=== PATIENT | female | born 1980 | race Hispanic/Latino ===

== ENCOUNTER 2020-03-07 16:52 | Emergency (ER) | payer OTHER ==
[2020-03-07 17:49] LABS: BASOPHILS % (AUTO) 0.4 % (0.0-5.0); EOSINOPHILS % (AUTO) 1.5 % (0.0-8.0); HEMATOCRIT 36.7 % (36-48); LYMPHOCYTES % (AUTO) 29.6 % (21.0-51.0); MEAN CORPUSCULAR HEMOGLOBIN 29.5 pg (27.0-33.0); MEAN CORPUSCULAR HGB CONC 33.8 g/dL (32.0-36.0); MEAN CORPUSCULAR VOLUME 87.4 fL (79-99); MONOCYTES % (AUTO) 5.5 % (3.0-13.0); NEUTROPHILS % (AUTO) 62.9 % (40.0-77.0); PLATELET COUNT (AUTO) 196 K/uL (130-400)
[2020-03-07 18:01] LABS: CREATININE 0.6 mg/dL (0.5-1.5); INR 0.92 (0.85-1.15); PARTIAL THROMBOPLASTIN TIME 26.4 SEC (26.3-35.5); POTASSIUM 3.7 mmol/L (3.5-5.1)
[2020-03-07] MEDS ORDERED: IOHEXOL-350 75 ML VIAL IV ONE (18:04)
[2020-03-07 18:05] LABS: ALBUMIN 3.9 g/dL (3.5-5.0); BILIRUBIN,TOTAL 0.9 mg/dL (0.2-1.0); TOTAL PROTEIN, SERUM 7.4 g/dL (6.0-8.3)
[2020-03-07 18:07] LABS: APPEARANCE,URINE Clear (CLEAR); BILIRUBIN,URINE Negative (NEGATIVE); COLOR,URINE Yellow (YELLOW); GLUCOSE, URINE (UA) Negative (NEGATIVE); KETONES,URINE Negative (NEGATIVE); LEUKOCYTE ESTERASE ,URINE Negative (NEGATIVE); NITRATE,URINE Negative (NEGATIVE); OCCULT BLOOD,URINE Negative (NEGATIVE); PROTEIN,URINE Negative (NEGATIVE); UROBILINOGEN,URINE 0.2 mg/dL (0.2-1.0)
== END 2020-03-08 00:13 | disposition home or self-care (01) ==
LOC: EDH 16:52
DX: R07.89 Other chest pain (principal); R00.2 Palpitations; I10 Essential (primary) hypertension
CPT/HCPCS: 36415; 71275; 80053; 81003; 84484 ×2; 85025; 85610; 85730; 93005; 99285; Q9967

== ENCOUNTER → 2020-03-27 | Outpatient (CLI) | payer SELFPAY | END | disposition home or self-care (01) | LOC: SHCH 14:27 | PROVIDERS: ATTEND Internal Medicine Cardiovascular Disease | DX: R60.9 Edema, unspecified (principal) | CPT/HCPCS: 93970 ==

== ENCOUNTER 2022-12-14 22:59 | Observation (INO) | payer BC ==
[~2022-12-14] VITALS: Ht 154.9 cm; Wt 72.5 kg
[2022-12-15 00:41] LABS: BASOPHILS % (AUTO) 0.6 % (0.0-5.0); EOSINOPHILS % (AUTO) 1.1 % (0.0-8.0); HEMATOCRIT 38.4 % (36-48); LYMPHOCYTES % (AUTO) 37.5 % (21.0-51.0); MEAN CORPUSCULAR HEMOGLOBIN 29.3 pg (27.0-33.0); MEAN CORPUSCULAR HGB CONC 33.6 g/dL (32.0-36.0); MEAN CORPUSCULAR VOLUME 87.3 fL (79-99); MONOCYTES % (AUTO) 6.6 % (3.0-13.0); NEUTROPHILS % (AUTO) 53.9 % (40.0-77.0); PLATELET COUNT (AUTO) 203 K/uL (130-400); RED CELL DISTRIBUTION WIDTH 12.1 % (11.0-15.5); WHITE BLOOD COUNT (AUTO) 7.9 K/uL (4.8-10.8)
[2022-12-15 00:50] LABS: POTASSIUM 3.6 mmol/L (3.5-5.1); TOTAL PROTEIN, SERUM 7.6 g/dL (6.0-8.3)
[2022-12-15 00:51] LABS: ALBUMIN 3.8 g/dL (3.5-5.0); CREATININE 0.7 mg/dL (0.5-1.5)
[2022-12-15] MEDS ORDERED: POTASSIUM CHLORIDE 10% ELIXIR 20 MEQ/15 ML UDCUP PO PRN (05:00)
[2022-12-15] MEDS ORDERED: MAGNESIUM 2GM PREMIX 50ML 50 ML IV PRN (05:00)
[2022-12-15] MEDS ORDERED: POTASSIUM CHLORIDE 20MEQ/100ML 100 ML IV PRN (05:00)
[2022-12-15] MEDS ORDERED: DOCUSATE SODIUM 100 MG CAP PO PRN (05:00)
[2022-12-15] MEDS ORDERED: GLUCAGON 1MG KIT 1 MG ML IM PRN (05:00)
[2022-12-15] MEDS ORDERED: HYDRALAZINE 20MG/ML VIAL IV PRN (05:00)
[2022-12-15] MEDS ORDERED: DEXTROSE 50%-WATER 50 ML DISP.SYRIN IV PRN (05:00)
[2022-12-15] MEDS ORDERED: LACTULOSE 20 GM/30 ML UDCUP PO PRN (05:00)
[2022-12-15] MEDS ORDERED: ACETAMINOPHEN 650 MG SUPPOSITORY RC PRN (05:00)
[2022-12-15] MEDS ORDERED: ONDANSETRON 4MG INJ IVP PRN (05:00)
[2022-12-15] MEDS ORDERED: LIDOCAINE HCL-MPF 1% 2ML VIAL IV PRN (05:00)
[2022-12-15] MEDS ORDERED: ASPIRIN 325MG EC TAB PO STA (05:01)
[2022-12-15] MEDS ORDERED: NITROGLYCERIN 0.4 MG SL TAB SL PRN (05:30)
[2022-12-15] MEDS: INSULIN HUMULIN R 100 UNIT/ML 3ML SQ SCH ×4 (07:30→20:35)
[2022-12-15] MEDS ORDERED: ASPI-1005 PO (08:01)
[2022-12-15] MEDS ORDERED: SACU1TAB4 PO (08:01)
[2022-12-15] MEDS ORDERED: METO-408 PO (08:01)
[2022-12-15] MEDS ORDERED: ASPIRIN 81MG CHEW TAB ONE (09:09)
[2022-12-15] MEDS: ACETAMINOPHEN 325 MG TAB PO PRN ×2 (09:16→13:06)
[2022-12-15] MEDS ORDERED: KETOROLAC 15MG/ML VIAL (15MG/ML) IV PRN (17:30)
[2022-12-15] MEDS: KCL 20 MEQ ERTAB PO PRN ×2 (18:16→18:25)
[2022-12-15] MEDS ORDERED: CLONIDINE HCL 0.1 MG TABLET PO PRN (18:30)
[2022-12-15 20:00] VITALS: BP 133/75
[2022-12-15] MEDS: SACUBITRIL/VALSARTAN 1 EACH TABLET PO SCH (20:39)
[2022-12-15] MEDS: METOPROLOL SUCCINATE 25 MG TAB.SR.24H PO SCH (20:39)
[2022-12-15 23:35] VITALS: BP 124/69
[2022-12-16 03:47] VITALS: BP 108/67
[2022-12-16 03:50] LABS: BASOPHILS % (AUTO) 0.5 % (0.0-5.0); EOSINOPHILS % (AUTO) 2.1 % (0.0-8.0); HEMATOCRIT 40.3 % (36-48); MEAN CORPUSCULAR HEMOGLOBIN 29.4 pg (27.0-33.0); MEAN CORPUSCULAR HGB CONC 32.8 g/dL (32.0-36.0); MEAN CORPUSCULAR VOLUME 89.8 fL (79-99); MONOCYTES % (AUTO) 8.4 % (3.0-13.0); NEUTROPHILS % (AUTO) 56.1 % (40.0-77.0); PLATELET COUNT (AUTO) 200 K/uL (130-400); RED BLOOD CELL COUNT(AUTO) 4.49 MIL/uL (4.00-5.50); RED CELL DISTRIBUTION WIDTH 12.3 % (11.0-15.5); WHITE BLOOD COUNT (AUTO) 8.2 K/uL (4.8-10.8)
[2022-12-16 04:03] LABS: CREATININE 0.9 mg/dL (0.5-1.5); MAGNESIUM 2.1 mg/dL (1.80-2.40); POTASSIUM 4.1 mmol/L (3.5-5.1)
[2022-12-16 04:16] VITALS: BP 124/60
[2022-12-16 05:02] VITALS: BP 83/52
[2022-12-16] MEDS: INSULIN HUMULIN R 100 UNIT/ML 3ML SQ SCH ×3 (05:32→16:30)
[2022-12-16 07:49] VITALS: BP 122/70
[2022-12-16] MEDS ORDERED: ASPIRIN 81MG CHEW TAB PO SCH (09:00)
[2022-12-16] MEDS: METOPROLOL SUCCINATE 25 MG TAB.SR.24H PO SCH (09:16)
[2022-12-16] MEDS: SACUBITRIL/VALSARTAN 1 EACH TABLET PO SCH (09:16)
[2022-12-16 12:00] VITALS: BP 124/85
[2022-12-16] MEDS ORDERED: CLON0.1T2 PO (14:21)
[2022-12-16 16:00] VITALS: BP 119/74
[2022-12-16] MEDS ORDERED: SACU1TAB7 PO (16:21)
[2022-12-16] MEDS ORDERED: SACUBITRIL/VALSARTAN 1 EACH TABLET PO SCH (21:00)
== END 2022-12-16 17:03 | disposition home or self-care (01) ==
LOC: EDH 22:59 → EDHIP 12-15 04:26 → 2DH 12-15 16:12
PROVIDERS: ADMIT Internal Medicine; ATTEND Internal Medicine
DX: I16.0 Hypertensive urgency (principal); I16.1 Hypertensive emergency; I48.0 Paroxysmal atrial fibrillation; E78.5 Hyperlipidemia, unspecified; I10 Essential (primary) hypertension; E66.9 Obesity, unspecified; I24.8 Other forms of acute ischemic heart disease; Q21.10 Atrial septal defect, unspecified; Z79.899 Other long term (current) drug therapy; Z90.710 Acquired absence of both cervix and uterus; Z87.74 Personal history of (corrected) congenital malformations of heart and circulatory system
CPT/HCPCS: 93005 ×2; 96374; 96375; 99285; 84484 ×2; 80053; 84703; 85025 ×2; 82948 ×7; 36415 ×2; 71045; 93306; 83735; 84100; 80048; G0378 ×35; J0360; J2405; J1885

== ENCOUNTER → 2023-01-21 | Outpatient (CLI) | payer OTHER ==
[~2023-01-21] MED LIST: ASPI-1005 PO; CLON0.1T2 PO; METO-408 PO; SACU1TAB7 PO
== END | disposition home or self-care (01) ==
LOC: RAH 10:00
PROVIDERS: ATTEND Internal Medicine Cardiovascular Disease
DX: Z13.6 Encounter for screening for cardiovascular disorders (principal)
CPT/HCPCS: 75571

== ENCOUNTER → 2023-03-26 | Outpatient (CLI) | payer OTHER ==
[2023-03-26 12:22] LABS: CREATININE 0.7 mg/dL (0.5-1.5); POTASSIUM 4.2 mmol/L (3.5-5.1)
== END | disposition home or self-care (01) ==
LOC: LAB 08:39
PROVIDERS: ATTEND Internal Medicine Cardiovascular Disease
DX: I10 Essential (primary) hypertension (principal); R40.0 Somnolence; G45.9 Transient cerebral ischemic attack, unspecified
CPT/HCPCS: 36415; 80048

== ENCOUNTER 2023-07-17 13:53 | Inpatient (IN) | payer OTHER ==
[~2023-07-17] VITALS: Ht 154.9 cm; Wt 75.5 kg
[~2023-07-17 13:53] MED LIST changes: +HYDR12.54 PO; -METO-408 PO; +SPIR25TA6 PO
[2023-07-17 14:34] LABS: BASOPHILS # (AUTO) 0.03 K/uL (0.00-0.20); BASOPHILS % (AUTO) 0.4 % (0.0-5.0); EOSINOPHILS # (AUTO) 0.13 K/uL (0.00-0.70); EOSINOPHILS % (AUTO) 1.7 % (0.0-8.0); HEMATOCRIT 38.1 % (36-48); IMMATURE GRANULOCYTE ABSOLUTE 0.02 K/uL (0-1); LYMPHOCYTES # (AUTO) 2.7 K/uL (1.0-4.8); MEAN CORPUSCULAR HEMOGLOBIN 29.9 pg (27.0-33.0); MEAN CORPUSCULAR HGB CONC 33.6 g/dL (32.0-36.0); MONOCYTES # (AUTO) 0.5 K/uL (0.1-1.0); MONOCYTES % (AUTO) 6.7 % (3.0-13.0); NEUTROPHILS # (AUTO) 4.2 K/uL (1.8-7.7); NEUTROPHILS % (AUTO) 55.9 % (40.0-77.0); PLATELET COUNT (AUTO) 224 K/uL (130-400); RED BLOOD CELL COUNT(AUTO) 4.28 MIL/uL (4.00-5.50); RED CELL DISTRIBUTION WIDTH 12.1 % (11.0-15.5); WHITE BLOOD COUNT (AUTO) 7.6 K/uL (4.8-10.8)
[2023-07-17 14:42] LABS: CREATININE 0.8 mg/dL (0.5-1.5); POTASSIUM 3.5 mmol/L (3.5-5.1)
[2023-07-17 14:46] LABS: ALBUMIN 3.7 g/dL (3.5-5.0); MAGNESIUM 1.6 mg/dL (1.80-2.40); TOTAL PROTEIN, SERUM 7.6 g/dL (6.0-8.3)
[2023-07-17] MEDS ORDERED: ONDANSETRON 4MG INJ IVP ONE (15:00)
[2023-07-17] MEDS ORDERED: 0.9%NACL 50ML 50 ML IV ONE (15:07)
[2023-07-17] MEDS ORDERED: ALTEPLASE 100 MG VIAL IVP ONE (15:07)
[2023-07-17 16:34] LABS: ADD UA MICROSCOPIC YES; APPEARANCE,URINE CLEAR (CLEAR); BILIRUBIN,URINE NEGATIVE (NEGATIVE); COLOR,URINE LIGHT-YELLOW (YELLOW); GLUCOSE, URINE (UA) NEGATIVE (NEGATIVE); KETONES,URINE NEGATIVE (NEGATIVE); LEUKOCYTE ESTERASE ,URINE NEGATIVE Leu/uL (NEGATIVE); NITRATE,URINE NEGATIVE (NEGATIVE); PH,URINE 6.5 (5.0-8.0); PROTEIN,URINE NEGATIVE (NEGATIVE); UROBILINOGEN,URINE 0.2 mg/dL (0.2-1.0)
[2023-07-17 16:35] LABS: SQUAMOUS EPITHELIAL CELL,UR RARE /HPF (0-2); WBC,URINE 0-1 /HPF (0-1)
[2023-07-17 16:38] LABS: HCG,QUALITATIVE URINE NEGATIVE (NEGATIVE)
[2023-07-17] MEDS ORDERED: MAGNESIUM 2GM PREMIX 50ML 50 ML IV SCH (17:00)
[2023-07-17] MEDS ORDERED: KETOROLAC 30MG VIAL (30MG/ML) IVP ONE (17:00)
[2023-07-17] MEDS ORDERED: 0.9% NACL 500ML IV.SOLN 500 ML IV ONE (17:00)
[2023-07-17] MEDS ORDERED: LACTULOSE 20 GM/30 ML UDCUP PO PRN (18:30)
[2023-07-17] MEDS ORDERED: LABETALOL 20MG SYG IV PRN (18:30)
[2023-07-17] MEDS ORDERED: TEMAZEPAM 15 MG CAPSULE PO PRN (18:30)
[2023-07-17] MEDS ORDERED: HYDRALAZINE 20MG/ML VIAL IV PRN (18:30)
[2023-07-17] MEDS ORDERED: ACETAMINOPHEN 650 MG SUPPOSITORY RC PRN (18:30)
[2023-07-17] MEDS ORDERED: DOCUSATE SODIUM 100 MG CAP PO PRN (18:30)
[2023-07-17] MEDS ORDERED: CLONIDINE HCL 0.1 MG TABLET PO PRN (18:30)
[2023-07-17] MEDS ORDERED: IPRATROPIUM/ALBUTEROL SULFATE 3 ML SOLUTION IH PRN (18:30)
[2023-07-17 19:38] VITALS: RESP 19; O2SAT 99
[2023-07-17 19:40] LABS: SARS-CoV-2, RNA, NAAT NEGATIVE SARS CoV-2 (NEGATIVE)
[2023-07-17 19:42] LABS: INFLUENZA TYPE A Negative For Type A (NEGATIVE); INFLUENZA TYPE B Negative For Type B (NEGATIVE)
[2023-07-17] MEDS: NITROGLYCERIN 1GM OINT 1 INCH/1GM TD SCH (19:44)
[2023-07-17] MEDS: INSULIN HUMULIN R 100 UNIT/ML 3ML SQ SCH (20:38)
[2023-07-17] MEDS ORDERED: POTASSIUM CHLORIDE 20MEQ/100ML 100 ML IV PRN ×2 (21:00)
[2023-07-17] MEDS ORDERED: POTASSIUM CHLORIDE 10% ELIXIR 20 MEQ/15 ML UDCUP PO PRN (21:00)
[2023-07-17] MEDS ORDERED: KCL 20 MEQ ERTAB PO PRN (21:00)
[2023-07-17] MEDS: TRAMADOL HCL 50 MG TABLET PO PRN (21:43)
[2023-07-18] VITALS (13 sets, daily range): BP systolic 102–122; BP diastolic 60–87; PULSE 46–89; RESP 16–19; O2SAT 98
[2023-07-18] MEDS: NITROGLYCERIN 1GM OINT 1 INCH/1GM TD SCH ×3 (03:11→19:59)
[2023-07-18] MEDS: TRAMADOL HCL 50 MG TABLET PO PRN (03:18)
[2023-07-18 04:09] LABS: BASOPHILS # (AUTO) 0.03 K/uL (0.00-0.20); BASOPHILS % (AUTO) 0.4 % (0.0-5.0); EOSINOPHILS # (AUTO) 0.15 K/uL (0.00-0.70); EOSINOPHILS % (AUTO) 1.9 % (0.0-8.0); IMMATURE GRANULOCYTE ABSOLUTE 0.03 K/uL (0-1); LYMPHOCYTES # (AUTO) 2.8 K/uL (1.0-4.8); MEAN CORPUSCULAR HEMOGLOBIN 30.1 pg (27.0-33.0); MEAN CORPUSCULAR HGB CONC 33.5 g/dL (32.0-36.0); MEAN CORPUSCULAR VOLUME 89.7 fL (79-99); MONOCYTES # (AUTO) 0.6 K/uL (0.1-1.0); MONOCYTES % (AUTO) 7.7 % (3.0-13.0); NEUTROPHILS # (AUTO) 4.2 K/uL (1.8-7.7); NEUTROPHILS % (AUTO) 53.6 % (40.0-77.0); PLATELET COUNT (AUTO) 198 K/uL (130-400); RED BLOOD CELL COUNT(AUTO) 3.79 MIL/uL (4.00-5.50); RED CELL DISTRIBUTION WIDTH 12.1 % (11.0-15.5); WHITE BLOOD COUNT (AUTO) 7.8 K/uL (4.8-10.8)
[2023-07-18 04:21] LABS: CREATININE 0.8 mg/dL (0.5-1.5); MAGNESIUM 2.1 mg/dL (1.80-2.40)
[2023-07-18] MEDS: INSULIN HUMULIN R 100 UNIT/ML 3ML SQ SCH ×2 (06:47→11:30)
[2023-07-18] MEDS: ASPIRIN 81MG CHEW TAB PO SCH (10:14)
[2023-07-18] MEDS: ENOXAPARIN SODIUM 40 MG/0.4 ML SYRINGE SQ SCH (10:14)
[2023-07-18] MEDS: PANTOPRAZOLE 40 MG TAB DR PO SCH (10:14)
[2023-07-18] MEDS ORDERED: CLONIDINE HCL 0.1 MG TABLET PO PRN (11:30)
[2023-07-18] MEDS: ACETAMINOPHEN 325 MG TAB PO PRN (16:30)
[2023-07-18] MEDS: SACUBITRIL/VALSARTAN 1 EACH TABLET PO SCH (20:03)
[2023-07-19] VITALS (55 sets, daily range): BP systolic 100–172; BP diastolic 51–115; PULSE 60–99; RESP 12–128; O2SAT 94–98
[2023-07-19] MEDS: NITROGLYCERIN 1GM OINT 1 INCH/1GM TD SCH ×4 (02:44→18:30)
[2023-07-19] MEDS ORDERED: ASPIRIN 81MG CHEW TAB PO SCH (09:00)
[2023-07-19] MEDS: SPIRONOLACTONE 25 MG TAB PO SCH (10:52)
[2023-07-19] MEDS: HYDROCHLOROTHIAZIDE 25 MG TABLET PO SCH (10:53)
[2023-07-19] MEDS: SACUBITRIL/VALSARTAN 1 EACH TABLET PO SCH ×2 (10:53→21:30)
[2023-07-19] MEDS: ASPIRIN 81MG CHEW TAB PO SCH (10:54)
[2023-07-19] MEDS: PANTOPRAZOLE 40 MG TAB DR PO SCH (10:55)
[2023-07-19] MEDS: ENOXAPARIN SODIUM 40 MG/0.4 ML SYRINGE SQ SCH (10:55)
[2023-07-19] MEDS: TRAMADOL HCL 50 MG TABLET PO PRN (11:14)
[2023-07-19] MEDS: ONDANSETRON 4MG INJ IVP PRN (12:30)
[2023-07-19] MEDS ORDERED: ASPIRIN 300 MG SUPPOSITORY PR STA (13:57)
[2023-07-19] MEDS ORDERED: IOHEXOL-350 75 ML VIAL IV ONE (15:05)
[2023-07-19 16:45] LABS: INR < 0.93 (0.85-1.15); PROTHROMBIN TIME 10.3 SEC (9.6-11.6)
[2023-07-19 16:47] LABS: PARTIAL THROMBOPLASTIN TIME 27.9 SEC (26.3-35.5)
[2023-07-19] MEDS ORDERED: TRAMADOL HCL 50 MG TABLET ONE (17:11)
[2023-07-19] MEDS: ACETAMINOPHEN 325 MG TAB PO PRN (17:20)
[2023-07-19] MEDS: 0.9%NACL 1000ML 1,000 ML IV SCH (17:23)
[2023-07-19] MEDS ORDERED: NICARDIPINE IV SCH (18:00)
[2023-07-19] MEDS ORDERED: NACL 0.9% IV SCH (18:00)
[2023-07-19] MEDS ORDERED: NICARDIPINE IV PRN (18:00)
[2023-07-19] MEDS ORDERED: NACL 0.9% IV PRN (18:00)
[2023-07-19] MEDS ORDERED: ATORVASTATIN 40 MG TABLET PO ONE (23:55)
[2023-07-20] VITALS (68 sets, daily range): BP systolic 89–143; BP diastolic 48–90; PULSE 56–94; RESP 13–39; O2SAT 98–99
[2023-07-20] MEDS: NITROGLYCERIN 1GM OINT 1 INCH/1GM TD SCH ×3 (02:30→18:10)
[2023-07-20] MEDS: 0.9%NACL 1000ML 1,000 ML IV SCH ×2 (03:11→13:13)
[2023-07-20] MEDS: ENOXAPARIN SODIUM 40 MG/0.4 ML SYRINGE SQ SCH (08:38)
[2023-07-20] MEDS: ASPIRIN 81MG CHEW TAB PO SCH (08:38)
[2023-07-20] MEDS: HYDROCHLOROTHIAZIDE 25 MG TABLET PO SCH (09:51)
[2023-07-20] MEDS: PANTOPRAZOLE 40 MG TAB DR PO SCH (09:51)
[2023-07-20] MEDS: SPIRONOLACTONE 25 MG TAB PO SCH (09:51)
[2023-07-20] MEDS: SACUBITRIL/VALSARTAN 1 EACH TABLET PO SCH ×2 (10:32→20:13)
[2023-07-20] MEDS: ONDANSETRON 4MG INJ IVP PRN (13:13)
[2023-07-20] MEDS: ACETAMINOPHEN 325 MG TAB PO PRN (14:54)
[2023-07-20 15:57] LABS: HEMATOCRIT 36.8 % (36-48); MEAN CORPUSCULAR HEMOGLOBIN 30.1 pg (27.0-33.0); MEAN CORPUSCULAR HGB CONC 34.2 g/dL (32.0-36.0); MEAN CORPUSCULAR VOLUME 87.8 fL (79-99); RED BLOOD CELL COUNT(AUTO) 4.19 MIL/uL (4.00-5.50); RED CELL DISTRIBUTION WIDTH 11.9 % (11.0-15.5); WHITE BLOOD COUNT (AUTO) 8.3 K/uL (4.8-10.8)
[2023-07-20 16:08] LABS: INR < 0.93 (0.85-1.15); PROTHROMBIN TIME 10.4 SEC (9.6-11.6)
[2023-07-20 16:18] LABS: ALBUMIN 3.6 g/dL (3.5-5.0); CREATININE 0.7 mg/dL (0.5-1.5); POTASSIUM 3.5 mmol/L (3.5-5.1); TOTAL PROTEIN, SERUM 7.6 g/dL (6.0-8.3)
[2023-07-20 16:25] LABS: HEMOGLOBIN A1C 5.4 % (4.0-6.0)
[2023-07-20] MEDS ORDERED: ATORVASTATIN 40 MG TABLET PO SCH (21:00)
[2023-07-21] VITALS (16 sets, daily range): BP systolic 92–135; BP diastolic 39–91; PULSE 52–66; RESP 20–24; O2SAT 97
== END 2023-07-21 04:27 | disposition short-term general hospital (02) | DRG 61 ==
LOC: EDH 13:53 → EDHIP 18:23 → OBSVTOIN 18:23 → 2DH 23:38 → 2CV 07-19 15:42 → 2CH 07-19 19:31
PROVIDERS: ADMIT Internal Medicine Pulmonary Disease; ATTEND Internal Medicine Pulmonary Disease
DX: I63.9 Cerebral infarction, unspecified (principal); I21.4 Non-ST elevation (NSTEMI) myocardial infarction; I50.31 Acute diastolic (congestive) heart failure; I11.0 Hypertensive heart disease with heart failure; Z20.822 Contact with and (suspected) exposure to COVID-19; G89.29 Other chronic pain; E78.5 Hyperlipidemia, unspecified; I48.0 Paroxysmal atrial fibrillation; G43.809 Other migraine, not intractable, without status migrainosus; E66.9 Obesity, unspecified; G47.33 Obstructive sleep apnea (adult) (pediatric); E11.9 Type 2 diabetes mellitus without complications; Z79.82 Long term (current) use of aspirin; Z86.73 Personal history of transient ischemic attack (TIA), and cerebral infarction without residual deficits; Z87.74 Personal history of (corrected) congenital malformations of heart and circulatory system; Z68.31 Body mass index [BMI] 31.0-31.9, adult; Z90.710 Acquired absence of both cervix and uterus
CPT/HCPCS: 36415; 70450; 70496; 70498; 70551; 71045; 80048; 80053; 80061; 81001; 81025; 82306; 82550; 82948; 83036; 83735; 83874; 84100; 84443; 84484; 85025; 85027; 85378; 85610; 85730; 87635; 87804; 92522; 92610; 93005; 97039; G0378; J1650; J1885; J2405; J2997; J3475; J3490; J7040; J7050; Q9967

== ENCOUNTER 2023-12-15 23:06 | Emergency (ER) | payer BC, OTHER ==
[~2023-12-15] VITALS: Ht 165.1 cm; Wt 75.7 kg
[2023-12-15 23:07] VITALS: BP 147/85; PULSE 65; RESP 18
[2023-12-15 23:46] LABS: BASOPHILS # (AUTO) 0.04 K/uL (0.00-0.20); BASOPHILS % (AUTO) 0.5 % (0.0-5.0); EOSINOPHILS # (AUTO) 0.17 K/uL (0.00-0.70); EOSINOPHILS % (AUTO) 2.3 % (0.0-8.0); HEMATOCRIT 35.7 % (36-48); IMMATURE GRANULOCYTE ABSOLUTE 0.02 K/uL (0-1); LYMPHOCYTES # (AUTO) 2.6 K/uL (1.0-4.8); LYMPHOCYTES % (AUTO) 34.1 % (21.0-51.0); MEAN CORPUSCULAR HEMOGLOBIN 29.9 pg (27.0-33.0); MEAN CORPUSCULAR HGB CONC 33.6 g/dL (32.0-36.0); MEAN CORPUSCULAR VOLUME 88.8 fL (79-99); MONOCYTES # (AUTO) 0.6 K/uL (0.1-1.0); MONOCYTES % (AUTO) 7.4 % (3.0-13.0); NEUTROPHILS # (AUTO) 4.2 K/uL (1.8-7.7); NEUTROPHILS % (AUTO) 55.4 % (40.0-77.0); PLATELET COUNT (AUTO) 178 K/uL (130-400); RED BLOOD CELL COUNT(AUTO) 4.02 MIL/uL (4.00-5.50); RED CELL DISTRIBUTION WIDTH 12.2 % (11.0-15.5); WHITE BLOOD COUNT (AUTO) 7.5 K/uL (4.8-10.8)
[2023-12-15 23:57] LABS: CREATININE 0.7 mg/dL (0.5-1.5); POTASSIUM 3.9 mmol/L (3.5-5.1)
[2023-12-16 00:01] LABS: ALBUMIN 3.4 g/dL (3.5-5.0); BILIRUBIN,TOTAL 0.8 mg/dL (0.2-1.0); TOTAL PROTEIN, SERUM 6.8 g/dL (6.0-8.3)
[2023-12-16] MEDS ORDERED: IBUP-1493 PO (01:03)
[2023-12-16] MEDS: KETOROLAC 60 MG VIAL (30MG/ML) IM ONE (01:25)
== END 2023-12-16 02:34 | disposition home or self-care (01) ==
LOC: EDH 23:06
DX: R09.1 Pleurisy (principal); I10 Essential (primary) hypertension; Z79.1 Long term (current) use of non-steroidal anti-inflammatories (NSAID); Z79.82 Long term (current) use of aspirin; Z79.899 Other long term (current) drug therapy; Z86.73 Personal history of transient ischemic attack (TIA), and cerebral infarction without residual deficits; Z90.710 Acquired absence of both cervix and uterus; Z95.810 Presence of automatic (implantable) cardiac defibrillator
CPT/HCPCS: 99284; 71045; 84484 ×2; 80053; 85025; 85378; 36415; 93005; 96372; J1885

== ENCOUNTER → 2024-03-07 | Outpatient (CLI) | payer SELFPAY ==
[~2024-03-07] MED LIST changes: +IBUP-1493 PO
[2024-03-07 12:17] LABS: BASOPHILS # (AUTO) 0.03 K/uL (0.00-0.20); BASOPHILS % (AUTO) 0.4 % (0.0-5.0); EOSINOPHILS % (AUTO) 1.5 % (0.0-8.0); HEMATOCRIT 41.6 % (36-48); IMMATURE GRANULOCYTE ABSOLUTE 0.03 K/uL (0-1); LYMPHOCYTES % (AUTO) 29.4 % (21.0-51.0); MEAN CORPUSCULAR HEMOGLOBIN 29.4 pg (27.0-33.0); MEAN CORPUSCULAR HGB CONC 33.2 g/dL (32.0-36.0); MEAN CORPUSCULAR VOLUME 88.5 fL (79-99); MONOCYTES # (AUTO) 0.4 K/uL (0.1-1.0); MONOCYTES % (AUTO) 5.5 % (3.0-13.0); NEUTROPHILS # (AUTO) 4.3 K/uL (1.8-7.7); NEUTROPHILS % (AUTO) 62.8 % (40.0-77.0); PLATELET COUNT (AUTO) 224 K/uL (130-400); RED CELL DISTRIBUTION WIDTH 12.7 % (11.0-15.5); WHITE BLOOD COUNT (AUTO) 6.8 K/uL (4.8-10.8)
[2024-03-07 12:51] LABS: ALBUMIN 3.7 g/dL (3.5-5.0); BILIRUBIN,TOTAL 0.9 mg/dL (0.2-1.0); CREATININE 0.6 mg/dL (0.5-1.0); POTASSIUM 4.3 mmol/L (3.5-5.1); TOTAL PROTEIN, SERUM 7.9 g/dL (6.0-8.3)
== END | disposition home or self-care (01) ==
LOC: LAB 09:02
PROVIDERS: ATTEND Internal Medicine Cardiovascular Disease
DX: I50.22 Chronic systolic (congestive) heart failure (principal)
CPT/HCPCS: 36415; 80053; 80061; 85025